=== PATIENT | female | born 1965 | race Caucasian/White ===

== ENCOUNTER 2017-07-09 13:07 | Emergency (ER) | payer MEDICAID, MEDICARE, OTHER ==
[2017-07-09 13:16] VITALS: BP 143/84
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
[2017-07-09 14:19] LABS: ABSOLUTE BASOPHILS # (AUTO) 0.1 10^3/uL (0.0-0.2); ABSOLUTE LYMPHOCYTES (AUTO) 3.3 10^3/uL (0.5-4.7); ABSOLUTE MONOCYTES (AUTO) 0.9 10^3/uL (0.1-1.4); ABSOLUTE NEUT (AUTO) 6.7 10^3/uL (1.7-8.2); BASOPHILS % (AUTO) 1.1 % (0-2); EOSINOPHILS % (AUTO) 0.2 % (0-6); HEMATOCRIT 46.1 % (36.0-47.0); HEMOGLOBIN 15.5 g/dL (12.0-15.5); HGB HCT DIFFERENCE 0.4; LYMPHOCYTES % (AUTO) 29.8 % (13-45); MEAN CORPUSCULAR HEMOGLOBIN 31.3 pg (27.0-33.4); MEAN CORPUSCULAR HGB CONC 33.7 g/dL (32.0-36.0); MEAN CORPUSCULAR VOLUME 93 fl (80-97); MONOCYTES % (AUTO) 8.2 % (3-13); RED BLOOD COUNT 4.95 10^6/uL (3.72-5.28); RED CELL DISTRIBUTION WIDTH 13.6 % (11.5-14.0); SEGMENTED NEUTROPHILS % (AUTO) 60.7 % (42-78)
[2017-07-09 14:28] LABS: APPEARANCE,URINE SLIGHTLY-CLOUDY; BILIRUBIN,URINE NEGATIVE (NEGATIVE); GLUCOSE, URINE NEGATIVE (NEGATIVE); KETONES,URINE TRACE mg/dL (NEGATIVE); LEUKOCYTE ESTERASE,URINE NEGATIVE (NEGATIVE); NITRITE,URINE NEGATIVE (NEGATIVE); PROTEIN,URINE NEGATIVE (NEGATIVE); URINE SPECIFIC GRAVITY 1.023
[2017-07-09 14:40] LABS: URINE BARBITURATES SCREEN NEGATIVE; URINE METHADONE SCREEN NEGATIVE; URINE OPIATES LOW NEGATIVE; URINE PHENCYCLIDINE SCREEN NEGATIVE
[2017-07-09 14:44] LABS: ALANINE AMINOTRANSFERASE 41 U/L (9-52); ALBUMIN 5.2 g/dL (3.5-5.0); ALKALINE PHOSPHATASE 72 U/L (38-126); ANION GAP 15 (5-19); ASPARTATE AMINO TRANSFERASE 23 U/L (14-36); BILIRUBIN,DIRECT 0.3 mg/dL (0.0-0.4); BILIRUBIN,TOTAL 0.7 mg/dL (0.2-1.3); BLOOD UREA NITROGEN 14 mg/dL (7-20); CALCIUM 10.2 mg/dL (8.4-10.2); CARBON DIOXIDE 26 mmol/L (22-30); CHLORIDE 106 mmol/L (98-107); CREATININE RESULT 0.78 mg/dL (0.52-1.25); GLUCOSE 86 mg/dL (75-110); POTASSIUM 4.4 mmol/L (3.6-5.0); SODIUM 146.7 mmol/L (137-145); TOTAL PROTEIN 8.3 g/dL (6.3-8.2)
[2017-07-09 14:46] LABS: ALCOHOL < 10 mg/dL (NONE DETECTED)
[2017-07-09] MEDS ORDERED: VENLAFAXINE HCL 75 MG TABLET PO ONE (15:30)
[2017-07-09] MEDS ORDERED: BUSPIRONE HCL 10 MG TABLET PO ONE (15:30)
--- NOTE | 2017-07-09 16:04 | PSYCHOLOGICAL NOTE ---
Psych Note - Psych Note Psych Note: pt states that she has family stressor son was arrested last week for running from law on motorcycle due to speeding and no lic. nephew has pending medical dx due to shadow on brain, and cousin this week. pt states that she just moved down to [place] to be closer to family. Patient disclosed she had an appointment yesterday to get her medications however she forgot about it because her son was arrested. She disclosed she does have a history of suicide attempt and she does not want to get to that point again. She disclosed she thought about killing herself for 2 week before that attempt and she stated "it scares me to think I thought about it that long and then tried...I don't want to feel that way again." She continued to state she has been on Effexor for a few years and "it works." Patient has her soon to be [id number], Bernadette, at bedside at her request and disclosed the patient lives with her. Patient and Bernadette discussed support network the patient currently has to include multiple family friends that have started taking turns sitting with the patient. Patient is alert and orientated to person, place, time and circumstances. Mood is slightly anxious with tearful affect; patient presentation is congruent with reported 2 days of miss Effexor doses. Patient denies current suicidal and homicidal ideation. Patient reports past attempt and stated she does not want to return to that place again. Delusions are absent and behavior is congruent with an intact reality based presentation ie organized, linear and rational thinking. Eye contact was well maintained. Conversational speech is within normal rate, tone and prosody. attention and concentration are good. Insight, judgment and impulse control are good. 296.30 (F33.9) major depressive disorder; recurrent unspecified per history provided by patient 309.81 (F43.10) posttraumatic stress disorder per history provided by patient Impression\\plan: Patient is considered psychiatrically clear. Patient does not meet IVC criteria per [place] GS 122C. Patient denies current suicidal homicidal ideation. Delusions are absent behaviors congruent with intact reality based presentation i.e. organized, linear rational thinking. Patient discloses she does have a past attempt and does not want to get that point. Patient has been out of her medication (Effexor) for 2 days now. She is presentation is congruent with reported 2 days of missed Effexor doses in addition to significant psychosocial stressors. Patient received psychiatric local resource list. Dr. Lamar was consulted and the care management of this patient; attending physician in agreement with her conditions and disposition.
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
--- NOTE | 2017-07-09 19:21 | EKG REPORT ---
SEVERITY:- ABNORMAL ECG - SINUS RHYTHM LEFT VENTRICULAR HYPERTROPHY : Confirmed by: Kvng Contreras MD 09-Jul-2017 19:21:21
== END 2017-07-09 16:10 | disposition home or self-care (01) ==
LOC: ER 13:07
DX: F33.9 Major depressive disorder, recurrent, unspecified (principal); F43.10 Post-traumatic stress disorder, unspecified; Z88.6 Allergy status to analgesic agent; Z88.0 Allergy status to penicillin; Z91.030 Bee allergy status; F17.210 Nicotine dependence, cigarettes, uncomplicated; E78.00 Pure hypercholesterolemia, unspecified
CPT/HCPCS: 93005; 99285; 36415; 80307 ×4; 84703; 85025; 80053; 81001; 93010; J3490